=== PATIENT | male | born 1970 | race Caucasian/White ===

== ENCOUNTER 2021-07-23 04:48 | Day surgery (SDC) | payer OTHER ==
[2021-07-21 12:37] VITALS: BMI 20.3
[2021-07-23 09:05] VITALS: BP 100/64; PULSE 64; TEMP 97.8
== END 2021-07-23 08:50 | disposition home or self-care (01) ==
LOC: JASU-ENDO 04:48
PROVIDERS: ATTEND Internal Medicine Gastroenterology
PROC: 0DBE8ZX Excision of Large Intestine, Via Natural or Artificial Opening Endoscopic, Diagnostic (ICD-10-PCS; 2021-07-23)
PROC: 0DBP8ZX Excision of Rectum, Via Natural or Artificial Opening Endoscopic, Diagnostic (ICD-10-PCS; principal; 2021-07-23 08:00)
DX: Z12.11 Encounter for screening for malignant neoplasm of colon (principal); Z80.0 Family history of malignant neoplasm of digestive organs; K62.1 Rectal polyp; D12.6 Benign neoplasm of colon, unspecified
CPT/HCPCS: 88305-TC

== ENCOUNTER 2023-12-22 04:41 | Day surgery (SDC) | payer OTHER ==
[2023-12-16 15:16] VITALS: BMI 23.8
[2023-12-22 07:19] VITALS: RESP 18; TEMP 97.8
[2023-12-22] MEDS ORDERED: SIMETHICONE 40 MG/0.6 ML BOTTLE ONE (07:30)
[2023-12-22 14:30] VITALS: BP 104/60; PULSE 63
== END 2023-12-22 08:54 | disposition home or self-care (01) ==
LOC: JASU-ENDO 04:41
PROVIDERS: ATTEND Internal Medicine Gastroenterology
PROC: 0DBN8ZX Excision of Sigmoid Colon, Via Natural or Artificial Opening Endoscopic, Diagnostic (ICD-10-PCS; principal; 2023-12-22 08:00)
DX: Z12.11 Encounter for screening for malignant neoplasm of colon (principal); D12.5 Benign neoplasm of sigmoid colon; Z86.010 Personal history of colon polyps; Z80.0 Family history of malignant neoplasm of digestive organs
CPT/HCPCS: 88305-TC